=== PATIENT | female | born 1950 | race Caucasian/White ===

== ENCOUNTER 2017-03-27 20:55 | Emergency (ER) | payer MEDICARE, BC ==
[2017-03-27 21:26] VITALS: BP 192/91
--- NOTE | 2017-03-27 22:37 | EDM.PDOC ---
ED HPI GENERAL MEDICAL PROBLEM - General Chief Complaint: Head Injury Stated Complaint: FALL, BUMP ON HEAD Time Seen by Provider: 03/27/17 21:27 Source of Information: Reports: Patient, Family History Limitations: Reports: No Limitations - History of Present Illness INITIAL COMMENTS - FREE TEXT/NARRATIVE: The patient was stepping off of a chair and she stepped down onto a small box from the computer and she slipped and fell back tarango and hit her head. She had no LOC but she has 9/10 pain to the back of her head. She also has neck pain. She denies any numbness or weakness. She has no nausea or vomiting. She feels unsteady and shaky on her legs. She has no blurred vision or double vision. She is not on any blood thinners to include aspirin. Onset: Sudden Duration: Minutes: Location: Reports: Head, Neck Quality: Reports: Sharp Severity: Severe Improves with: Reports: None Worsens with: Reports: Movement Context: Reports: Activity (She was stepping off of a chair and she fell backward) Associated Symptoms: Reports: No Other Symptoms Posterior Head Pain Score (Numeric/FACES): 9 - Related Data Allergies Allergy/AdvReac Type Severity Reaction Status Date / Time No Known Allergies Allergy Verified 03/27/17 21:32 Home Meds: Home Meds . [No Known Home Meds] 03/27/17 [History] Past Medical History - Past Surgical History GI Surgical History: Reports: Cholecystectomy, Other (See Below) Other GI Surgeries/Procedures: stomach surgery due to an ulcer Social & Family History - Tobacco Use Smoking Status *Q: Never Smoker - Caffeine Use Caffeine Use: Reports: Coffee - Recreational Drug Use Recreational Drug Use: No ED ROS GENERAL - Review of Systems Review Of Systems: See Below Constitutional: Reports: No Symptoms HEENT: Reports: No Symptoms Respiratory: Reports: No Symptoms Cardiovascular: Reports: No Symptoms Endocrine: Reports: No Symptoms GI/Abdominal: Reports: No Symptoms : Reports: No Symptoms Musculoskeletal: Reports: Neck Pain Skin: Reports: No Symptoms Neurological: Reports: Headache ED EXAM, HEAD INJURY - Physical Exam Exam: See Below Exam Limited By: No Limitations General Appearance: Alert, No Apparent Distress Head: Atraumatic, Normocephalic Eyes: Bilateral Eye: EOMI, PERRL Ears: Normal External Exam Nose: Normal Inspection Neck: Tenderness (Moderate to the upper cervical spine) Respiratory: No Respiratory Distress, Lungs Clear, Normal Breath Sounds Cardiovascular: Regular Rate, Rhythm, No Edema, No Murmur GI/Abdominal Exam: Soft, Non-Tender, No Organomegaly, No Mass Back Exam: Normal Inspection Extremities: Normal Inspection Neurologic: No Motor/Sensory Deficits, Alert, Oriented x 3 Course - Vital Signs Last Recorded V/S: Last Vital Signs Temp 97.7 F 03/27/17 21:24 Pulse 58 L 03/27/17 21:24 Resp 20 03/27/17 21:24 BP 192/91 H 03/27/17 21:24 Pulse Ox 99 03/27/17 21:24 - Orders/Labs/Meds Orders: Active Orders 24 hr Category Date Time Status Cervical Spine wo Cont [CT] Stat Exams 03/27/17 21:35 Taken Head wo Cont [CT] Stat Exams 03/27/17 21:34 Taken - Re-Assessments/Exams Free Text/Narrative Re-Assessment/Exam: 03/27/17 22:[address] of her head and cervical spine. 03/27/17 22:[address] of her cervical spine shows multilevel degenerative changes in the cervical spine. Left-sided facet athropathy. Moderate narrowing of the left C3 -C4 intervertabral foramen. Osteoporotic appearing cervical vertebra. No sign of cervical spine fracture. The CT of her shows right posterior parietal scalp contusion with no sign of underlying fracture. Chronic sinus disease in the left side of the sphenoid sinus. Mild cerebral atrophy and chronic white matter ischemic changes. No sign of acute intracranial injury. Departure - Departure Time of Disposition: 23:00 Disposition: Home, Self-Care 01 Condition: Good Clinical Impression: Fall Qualifiers: Encounter type: initial encounter Qualified Code(s): W19.XXXA - Unspecified fall, initial encounter Cervical strain Qualifiers: Encounter type: initial encounter Qualified Code(s): S16.1XXA - Strain of muscle, fascia and tendon at neck level, initial encounter Contusion of scalp Qualifiers: Encounter type: initial encounter Qualified Code(s): S00.03XA - Contusion of scalp, initial encounter Concussion Qualifiers: Encounter type: initial encounter Loss of consciousness presence/duration: without LOC Qualified Code(s): S06.0X0A - Concussion without loss of consciousness, initial encounter - Discharge Information Referrals: Thompson Mena MD [Primary Care Provider] - 1 Week Forms: ED Department Discharge Additional Instructions: Ice your head an neck a couple times per day for 2 days. Take tylenol or motrin for pain. Limit screen time such as TV, phone and computer for the next couple of days. Please return if you are worse. - My Orders Last 24 Hours: My Active Orders 03/27/17 21:34 Head wo Cont [CT] Stat 03/27/17 21:35 Cervical Spine wo Cont [CT] Stat - Assessment/Plan Last 24 Hours: My Active Orders 03/27/17 21:34 Head wo Cont [CT] Stat 03/27/17 21:35 Cervical Spine wo Cont [CT] Stat
--- NOTE | 2017-03-28 12:48 | CT ---
Head CT Technique: Multiple axial sections through the brain were obtained. Intravenous contrast was not utilized. Comparison: Prior head CT study is not available. Findings: Ventricles along with basal cisterns and sulci over the convexities are within normal limits for the patient's age. No abnormal parenchymal densities are seen. No evidence of intracranial hemorrhage. No midline shift or mass effect is seen. Mild soft tissue hematoma is noted within the posterior right scalp. No acute calvarial abnormality is identified. Slight mucosal thickening seen within the left side of the sphenoid sinus. Sinuses are otherwise clear. Impression: 1. Small soft tissue hematoma within the posterior right scalp. 2. No acute intracranial abnormality is identified. 3. Minimal sinus disease within the left sphenoid sinus felt to be incidental. Diagnostic code #2 I agree with preliminary report issued by [facility] ([facility] report finalized on 03/27/17, 11:34 PM Central Time)
--- NOTE | 2017-03-28 12:49 | CT ---
CT cervical spine Technique: Multiple axial sections were obtained from above C1 inferiorly through the inferior T1 level. Reconstructed sagittal and coronal images were reviewed. Findings: Mild disc space narrowing is noted at C5-C6 and C6-C7. Scattered anterior osteophytes are seen most prominent at C5-C6 and C6-C7. Posterior osteophytes are seen most prominent C5-C6. Minimal spondylolisthesis is seen at C3-C4 and C4-C5 which is felt to be due to degenerative apophyseal change. Other scattered degenerative apophyseal change is seen. Mild bilateral neural foraminal stenosis noted at C5-C6. Mild left-sided neural foraminal stenosis noted at C3-C4. Focal lucent lesion is identified within C5 which is felt to be incidental. No acute fracture is seen. Impression: 1. Degenerative change as noted above. 2. Nothing acute is identified on CT study of the cervical spine. Diagnostic code #2 I agree with preliminary report issued by [facility] ([facility] report finalized on 03/27/17, 11:44 PM Central Time)
== END 2017-03-27 23:05 | disposition home or self-care (01) ==
LOC: JD.ED 20:55
DX: S06.0X0A Concussion without loss of consciousness, initial encounter (principal); S16.1XXA Strain of muscle, fascia and tendon at neck level, initial encounter; S00.03XA Contusion of scalp, initial encounter; W01.10XA Fall on same level from slipping, tripping and stumbling with subsequent striking against unspecified object, initial encounter
CPT/HCPCS: 70450; 70450-26; 72125; 72125-26; 99284; 99284-25

== ENCOUNTER 2020-09-27 14:55 | Emergency (ER) | payer MEDICARE, BC ==
[2020-09-27 15:25] VITALS: BP 170/105; PULSE 67
--- NOTE | 2020-09-27 16:19 | EDM.PDOC ---
ED HPI GENERAL MEDICAL PROBLEM - General Chief Complaint: Upper Extremity Injury/Pain Stated Complaint: RT WRIST INJURY Time Seen by Provider: 09/27/20 15:28 Source of Information: Reports: Patient History Limitations: Reports: No Limitations - History of Present Illness INITIAL COMMENTS - FREE TEXT/NARRATIVE: 69-year-old female presents to the emergency department complaints of right wrist pain. Patient states she was out at the [employer] and stepped back onto some slippery rocks and fell backwards catching herself with her right hand. She states she immediately felt pain in her right wrist. She denies any previous injury to the extremity. She states that wrist has become more swollen and tender since the event. This happened just prior to arrival. Right Wrist Pain Score (Numeric/FACES): 9 - Related Data Allergies Allergy/AdvReac Type Severity Reaction Status Date / Time No Known Allergies Allergy Verified 09/27/20 15:25 Home Meds: Home Meds Alendronate Sodium [Fosamax] 70 mg PO WE 09/27/20 [History] Losartan/Hydrochlorothiazide [Losartan-HCTZ 50-12.5 MG] 1 tab PO DAILY 09/27/20 [History] oxyCODONE HCl/Acetaminophen [Percocet 5-325 mg Tablet] 1 each PO Q6H PRN #10 tablet 09/27/20 [Rx] Past Medical History Cardiovascular History: Reports: Hypertension Musculoskeletal History: Reports: Osteoarthritis - Past Surgical History GI Surgical History: Reports: Cholecystectomy, Other (See Below) Other GI Surgeries/Procedures: stomach surgery due to an ulcer Social & Family History - Tobacco Use Tobacco Use Status *Q: Never Tobacco User - Caffeine Use Caffeine Use: Reports: Coffee - Recreational Drug Use Recreational Drug Use: No Review of Systems - Review of Systems Review Of Systems: Comprehensive ROS is negative, except as noted in HPI. ED EXAM, GENERAL - Physical Exam Exam: See Below Exam Limited By: No Limitations General Appearance: Alert, WD/WN, No Apparent Distress Ears: Normal External Exam, Hearing Grossly Normal Nose: Normal Inspection Throat/Mouth: Normal Inspection, Normal Lips, Normal Voice, No Airway Compromise Head: Atraumatic, Normocephalic Neck: Normal Inspection, Supple, Non-Tender, Full Range of Motion Respiratory/Chest: No Respiratory Distress, No Accessory Muscle Use Cardiovascular: Normal Peripheral Pulses Peripheral Pulses: 2+: Radial (L), Radial (R) GI/Abdominal: No Distention (Female) Exam: Deferred Rectal (Female) Exam: Deferred Back Exam: Normal Inspection, Full Range of Motion Extremities: Normal Range of Motion, No Pedal Edema, Normal Capillary Refill. No: Normal Inspection (Swelling and bruising noted to the right distal radial area), Non-Tender (Distal radial tenderness noted anteriorly and posteriorly) Neurological: Alert, Oriented, Normal Cognition Psychiatric: Normal Affect, Normal Mood Skin Exam: Warm, Dry, Intact, No Rash, Ecchymosis (Right distal radius) Lymphatic: No Adenopathy Course - Vital Signs Text/Narrative:: 69-year-old female with a right wrist injury that occurred just prior to arrival. Patient was out fishing and stepped back onto some slippery wraps and slipped and fell backwards bracing herself with her right wrist. She immediately felt pain in the right wrist. She denies hitting her head or being knocked out. Upon assessment distal radius is swollen and tender and there is bruising noted dorsally. I have ordered an x-ray of this. Last Recorded V/S: Last Vital Signs Temp 98.2 F 09/27/20 15:22 Pulse 67 09/27/20 15:22 Resp 16 09/27/20 15:22 BP 170/105 H 09/27/20 15:22 Pulse Ox 100 09/27/20 15:22 - Orders/Labs/Meds Orders: Active Orders 24 hr Category Date Time Status Wrist Comp Min 3V Rt [CR] Stat Exams 09/27/20 15:45 Taken - Re-Assessments/Exams Free Text/Narrative Re-Assessment/Exam: 09/27/20 17:38 X-ray of the right wrist is appreciated for her right distal radial fracture. Sugar tong splint was applied and patient will be discharged home with recommendations she follow-up with Dr. Gee today early this week in the clinic. Departure - Departure Time of Disposition: 17:38 Disposition: Home, Self-Care 01 Condition: Good Clinical Impression: Distal radius fracture, right Qualifiers: Encounter type: initial encounter Fracture type: closed Fracture morphology: unspecified fracture morphology Qualified Code(s): S52.501A - Unspecified fracture of the lower end of right radius, initial encounter for closed fracture - Discharge Information Prescriptions: oxyCODONE HCl/Acetaminophen [Percocet 5-325 mg Tablet] 1 each PO Q6H PRN #10 tablet PRN Reason: Pain (Moderate 4-6) Referrals: Thompson Mena MD [Primary Care Provider] - Forms: ED Department Discharge Additional Instructions: You were seen in the emergency department today after injuring your right wrist. X-rays were completed and this did show a fracture in your distal radius. A splint was applied and this needs to be kept in place until you can follow-up with the orthopedic surgeon this week. Recommend that you call the [facility] [place] to schedule an appointment with Dr. Gee. The phone number is [phone]. Your wrist is likely going to be more sore over the next 48 hours. I have sent a prescription for Percocet pain medication to your pharmacy. You may take 1 tab every 6 hours as needed for more severe pain. Recommend that you take ibuprofen 600 mg every 6 hours for the next 48 hours. Be sure to take this medication with food. Keep the extremity elevated as much as possible. May ice the extremity for 30 minutes at a time every 3 hours while awake. Should your fingers become numb and tingly or you are unable to wiggle your fingers please return to the emergency department for reevaluation. Sepsis Event Note (ED) - Evaluation Sepsis Screening Result: No Definite Risk - Focused Exam Vital Signs: Vital Signs Temp Pulse Resp BP Pulse Ox 09/27/20 15:22 98.2 F 67 16 170/105 H 100 - My Orders Last 24 Hours: My Active Orders 09/27/20 15:45 Wrist Comp Min 3V Rt [CR] Stat - Assessment/Plan Last 24 Hours: My Active Orders 09/27/20 15:45 Wrist Comp Min 3V Rt [CR] Stat
--- NOTE | 2020-09-29 14:51 | CR ---
Right wrist: 4 views of the right wrist are obtained. Comparison: No previous wrist exam is available. Bony structures are osteopenic. Joint space narrowing is noted off the distal navicular bone. Several small cysts are seen within the lunate bone. Small calcification is seen off the posterior triquetrum compatible with an old small fracture. Mild joint space narrowing is seen within the first MCP joint. Mild joint space narrowing is noted between the navicular bone and radius. Impression: 1. Degenerative change and osteopenia. 2. Old injury off the posterior triquetrum. 3. Nothing acute is otherwise seen. Diagnostic code #2
== END 2020-09-27 18:00 | disposition home or self-care (01) ==
LOC: JD.ED 14:55
DX: S52.501A Unspecified fracture of the lower end of right radius, initial encounter for closed fracture (principal); I10 Essential (primary) hypertension; M19.90 Unspecified osteoarthritis, unspecified site; Z79.899 Other long term (current) drug therapy; Z90.49 Acquired absence of other specified parts of digestive tract; X58.XXXA Exposure to other specified factors, initial encounter
CPT/HCPCS: 29125; 73110-26-RT; 73110-RT; 99283; 99283-25

== ENCOUNTER 2021-04-23 05:56 | Day surgery (SDC) | payer MEDICARE, BC ==
[~2021-04-23 05:56] MED LIST: Lactated Ringers 1,000 ML IV SCH; Lidocaine 1%/Sod Bicarbonate in NS 8.4% 1 ML Syringe IDERM PRN; Sodium Chloride 0.9% 10 ML Syringe FLUSH PRN
[2021-04-23] MEDS ORDERED: fentaNYL 100 MCG/2 ML SDV ONE (06:15)
[2021-04-23] MEDS ORDERED: Propofol 200 MG/20 ML SDV ONE (06:15)
[2021-04-23] MEDS ORDERED: Midazolam 1 MG/ML 2 ML SDV ONE (06:15)
--- NOTE | 2021-04-23 06:25 | PCM.PREANE ---
Preanesthetic Assessment - Procedure Proposed Procedure: Left ring finger trgigger finger release with right ring finger trigger finger injection - Anesthesia/Transfusion/Family Hx Anesthesia History: Prior Anesthesia Reaction Type of Anesthesia Reaction: Excessive Nausea/Vomiting Transfusion History: No Prior Transfusion(s) Intubation History: Unknown - Review of Systems General: No Symptoms Pulmonary: No Symptoms Cardiovascular: No Symptoms Gastrointestinal: No Symptoms Neurological: No Symptoms Other: Reports: None - Physical Assessment NPO Status Date: 04/22/21 NPO Status Time: 18:00 Vital Signs: 154/82 HR 66 97.5 RR 16 97% Height: 1.6 m Weight: 63 kg ASA Class: 2 Mental Status: Alert & Oriented x3 Airway Class: Mallampati = 2 Dentition: Reports: Bridge (permanent bridge) Thyro-Mental Finger Breadths: 3 Mouth Opening Finger Breadths: 3 ROM/Head Extension: Full Lungs: Clear to Auscultation, Normal Respiratory Effort Cardiovascular: Regular Rate, Regular Rhythm, No Murmurs - Allergies Allergies/Adverse Reactions: Allergies Allergy/AdvReac Type Severity Reaction Status Date / Time No Known Allergies Allergy Verified 04/22/21 10:04 - Blood Blood Available: No Product(s) Available: None - Acknowledgements Anesthesia Type Planned: MAC Pt an Appropriate Candidate for the Planned Anesthesia: Yes Alternatives and Risks of Anesthesia Discussed w Pt/Guardian: Yes Pt/Guardian Understands and Agrees with Anesthesia Plan: Yes PreAnesthesia Questionnaire HEENT History: Reports: Impaired Vision Cardiovascular History: Reports: Hypertension Respiratory History: Reports: None Gastrointestinal History: Reports: GERD, Other (See Below) Other Gastrointestinal History: gastric outflow obstruction, hemorrhoids, H pylori gastritis Genitourinary History: Reports: None 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: Other (See Below) Other OB/BYN History: fibroid uterus Musculoskeletal History: Reports: Osteoarthritis, Other (See Below) Other Musculoskeletal History: trigger fingers Neurological History: Reports: None Psychiatric History: Reports: None Endocrine/Metabolic History: Reports: None Hematologic History: Reports: None Immunologic History: Reports: None Oncologic (Cancer) History: Reports: None Dermatologic History: Reports: None - Infectious Disease History Infectious Disease History: Reports: None - Past Surgical History Head Surgeries/Procedures: Reports: None HEENT Surgical History: Reports: Other (See Below) Other HEENT Surgeries/Procedures: ear surgery Cardiovascular Surgical History: Reports: None Respiratory Surgical History: Reports: None GI Surgical History: Reports: Appendectomy, Bariatric Procedure, Cholecystectomy, Colonoscopy, EGD, Other (See Below) Other GI Surgeries/Procedures: hemorrhoidectomy, hiatal hernia repair Female Surgical History: Reports: Tubal Ligation Endocrine Surgical History: Reports: None Neurological Surgical History: Reports: None Musculoskeletal Surgical History: Reports: None Oncologic Surgical History: Reports: None Dermatological Surgical History: Reports: None - SUBSTANCE USE Tobacco Use Status *Q: Never Tobacco User Tobacco Use Within Last Twelve Months: No Second Hand Smoke Exposure: No Days Per Week of Alcohol Use: 1 Number of Drinks Per Day: 4 Total Drinks Per Week: 4 Date of Last Drink: 04/18/21 Time of Last Drink: 18:00 Recreational Drug Use History: No - HOME MEDS Home Medications: Home Meds Alendronate Sodium [Fosamax] 70 mg PO WE 09/27/20 [History] Losartan/Hydrochlorothiazide [Losartan-HCTZ 50-12.5 MG] 1 tab PO DAILY 09/27/20 [History] Cholecalciferol (Vitamin D3) [Vitamin D3] 5,000 unit PO DAILY 04/22/21 [History] Hydrocodone/Acetaminophen [HYDROcodone-Acetaminophen 5-325 MG] 1 each PO Q6H PRN #4 tablet 04/22/21 [Rx] - CURRENT (IN HOUSE) MEDS Current Meds: Current Medications Lactated Ringer's (Ringers, Lactated) 1,000 mls @ 125 mls/hr IV ASDIRECTED LEW Stop: 04/23/21 23:00 Lidocaine/Sodium Bicarbonate (Lidocaine 1%/Sod Bicarbonate In Ns 8.4% 1 Ml Syringe) 0.25 ml IDERM ONETIME PRN PRN Reason: Prior to IV Start Stop: 04/23/21 18:00 Sodium Chloride (Sodium Chloride 0.9% 10 Ml Syringe) 10 ml FLUSH ASDIRECTED PRN PRN Reason: Keep Vein Open Stop: 04/23/21 18:00 Discontinued Medications Fentanyl (Fentanyl 100 Mcg/2 Ml Sdv) Confirm Administered Dose 100 mcg .ROUTE .STK-MED ONE Stop: 04/23/21 06:16 Midazolam HCl (Midazolam 1 Mg/Ml 2 Ml Sdv) Confirm Administered Dose 2 mg .ROUTE .STK-MED ONE Stop: 04/23/21 06:16 Propofol (Propofol 200 Mg/20 Ml Sdv) Confirm Administered Dose 200 mg .ROUTE .[facility]-MED ONE Stop: 04/23/21 06:16
[2021-04-23] MEDS ORDERED: Bupivacaine 0.25% 10 ML SDV ONE ×2 (06:45→07:02)
[2021-04-23] MEDS ORDERED: Lidocaine 1% 30 ML SDV ONE (06:46)
[2021-04-23] MEDS ORDERED: Triamcinolone Acetonide 40 MG/ML 1 ML SDV ONE (07:02)
[2021-04-23] MEDS ORDERED: Ondansetron 4 MG/2 ML SDV ONE (07:07)
--- NOTE | 2021-04-23 07:45 | PCM48HPAN ---
Post Anesthesia Note - EVALUATION WITHIN 48HRS OF ANESTHETIC Vital Signs in Normal Range: Yes Patient Participated in Evaluation: Yes Respiratory Function Stable: Yes Airway Patent: Yes Cardiovascular Function Stable: Yes Hydration Status Stable: Yes Pain Control Satisfactory: Yes Nausea and Vomiting Control Satisfactory: Yes Mental Status Recovered: Yes Vital Signs: Last Vital Signs Temp 97.5 F 04/23/21 06:20 Pulse 66 04/23/21 06:20 Resp 16 04/23/21 06:20 BP 154/82 H 04/23/21 06:20 Pulse Ox 97 04/23/21 06:20 Vital signs at 0735: BP 106/71 HR 56 RR 12 97% RA 97.1
[2021-04-23 09:28] VITALS: BP 118/69; PULSE 50
--- NOTE | 2021-05-07 07:15 | PCM.OPNOTE ---
- General Post-Op/Procedure Note Date of Surgery/Procedure: 04/23/21 Operative Procedure(s): left ring finger trigger finger release with right ring finger trigger finger injection Pre Op Diagnosis: left and right ring finger stenosing tenosynovitis Post-Op Diagnosis: Same Anesthesia Technique: Local, MAC Primary Surgeon: Robert Gee Anesthesia Provider: Judie Peñaloza Quarrying Specialist: Evita Garcia EBL in mLs: 5 Complications: None Condition: Good
--- NOTE | 2021-05-07 07:59 | OR ---
DATE OF OPERATION: 04/23/2021 SURGEON: Robert Gee MD OPERATION PERFORMED: Left ring finger trigger finger release with right ring finger trigger finger injection. PREOPERATIVE DIAGNOSIS: Left and right ring finger stenosing tenosynovitis. POSTOPERATIVE DIAGNOSIS: Left and right ring finger stenosing tenosynovitis. ANESTHESIA: Local MAC. ANESTHESIA PROVIDER: Sergey Mireles. DIRECTOR TARGETED MARKETING: Evita Garcia PA-C. ESTIMATED BLOOD LOSS: Less than 5 mL. COMPLICATIONS: None. CONDITION: Stable. DESCRIPTION OF PROCEDURE: The patient was identified in the preoperative holding area, proper site was marked and identified by the surgeon. The patient was taken back to the operative theater, where after adequate anesthesia, the left upper extremity was sterilely prepped and draped in the usual sterile fashion. OR time-out was performed, patient received 2 g IV Ancef. At this time, 1% lidocaine without epinephrine, 0.25% Marcaine without epinephrine were used to anesthetize over the A1 dionne. A transverse incision was then made. Ragnell retractors were placed to protect the neurovascular bundles. Gibson blade was then used to release the A1 dionne as well as the tenotomy, both proximally and distally, making sure to stop short of the A2 dionne. It was found to be adequate release. There was no tendinous adhesions. Adequate saline was irrigated through the wound. 4-0 nylon suture was used for closure of the skin. The patient had a sterile soft dressing applied. After this was completed under sterile technique, 1 mL of 40 mg Kenalog, 1 mL of 0.25% Marcaine were injected to the right ring finger A1 dionne. The patient tolerated all procedures well and sent to PACU in stable condition. MMODAL /[id number]
== END 2021-04-23 08:40 | disposition home or self-care (01) ==
LOC: JD.SDS 05:56
PROVIDERS: ATTEND Orthopaedic Surgery
DX: M65.842 Other synovitis and tenosynovitis, left hand (principal); M65.841 Other synovitis and tenosynovitis, right hand; M65.341 Trigger finger, right ring finger; I10 Essential (primary) hypertension; K21.9 Gastro-esophageal reflux disease without esophagitis; Z79.899 Other long term (current) drug therapy; Z90.49 Acquired absence of other specified parts of digestive tract; Z98.890 Other specified postprocedural states
CPT/HCPCS: 26055; J2250; J2405; J2704; J3010; J3301; J3490; J7120; 01810